=== PATIENT | male | born 1945 | race Caucasian/White ===

== ENCOUNTER → 2016-07-23 | Day surgery (SDC) | payer MEDICARE ==
[~2016-07-23] MED LIST: BUPIVACAINE HCL PF 0.5% 30 ML VIAL ONE; CLINDAMYCIN PHOS 600 MG/4 ML VIAL ONE; KETOROLAC TROMETHAMINE 30 MG/ML (IVP) VIAL IV PUSH ONE; LACTATED RINGER'S 1000 ML INJ 1,000 ML ONE; MIDAZOLAM HCL 2 MG/2 ML VIAL ONE; ONDANSETRON HCL 4 MG/2 ML VIAL IV PUSH ONE; PROPOFOL 200 MG/20 ML AMP IV ONE
--- NOTE | 2016-07-24 09:48 | MP ---
cc: EDNA BURKS DATE OF SURGERY 07/23/[address] Edna Burks UNIFIED COMMUNICATIONS ARCHITECT None. PREOPERATIVE DIAGNOSES 1. Left foot hallux rigidus. 2. Extensor contracture. POSTOPERATIVE DIAGNOSES 1. Left foot hallux rigidus. 2. Extensor contracture. PROCEDURE PERFORMED 1. Left foot first MPJ implant. 2. Left extensor hallucis longus lengthening. PATHOLOGY SENT None. ANESTHESIA General. HEMOSTASIS Ankle tourniquet at 250 mmHg. ESTIMATED BLOOD LOSS Less than 5 mL. INJECTABLES 10 cc of 0.5% Marcaine plain. MATERIALS USED A Silastic total first MPJ implant from [employer], 3-0 Monocryl, 3-0 Prolene. COMPLICATIONS None. INDICATIONS Mr. Orozco is a 71-year-old male patient with severe hallux rigidus of the left first MPJ. 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 We spoke about an MPJ fusion. However the concern is that the IPJ will need to be fused in the future. He has no pain now but clearly has arthritis. Fusing both joints can definitely cause a stiffening and unnatural gait so the decision was made to do a joint implant in the even he needs the IPJ fused. He is a low demand patient in his seventies and should manage quite well with an MPJ implant. The consent was signed. The procedure was explained. No guarantees were given. PROCEDURE Under mild anesthesia, the patient was brought into the operating room, placed in the operating table in supine position. The foot was then scrubbed, prepped and draped in the usual aseptic manner. An Esmarch bandage was used to exsanguinate the left foot and the tourniquet was inflated to 250 mmHg. Attention was directed to the dorsal aspect of the first metatarsophalangeal joint where a linear longitudinal incision was created through skin and deepened to the level of the joint with care being taken to identify and retract any vital neurovascular structures. The large dorsal and medial bone spurs were debrided using a rongeur and then two angled cuts were created, one on the metatarsal and one on the phalanx. The metatarsal was dorsal-proximal to plantar-distal and the phalanx was dorsal-distal to plantar-proximal. The pineapple bur was then used to break the surface of the metatarsal as well as the phalanx so that the awls could be inserted appropriately and make space for the implant. Once the stems were cleared, a size 40 sizer was implanted. The joint went through range of motion easily and the implant was well seated without being too tight or too loose. The sizer was removed. The area was flushed with copious amounts of sterile saline and a size 40 implant was placed. A Z-lengthening of the extensor hallucis longus was then performed as well as of the extensor hallucis brevis. They were both sutured back with 3-0 Monocryl and the deep and subcutaneous tissue was closed with 3-0 Monocryl and the skin was closed with 3-0 Prolene. Pneumatic ankle tourniquet was released, noted prompt hyperemic response to all digits of the left foot. 10 cc of 0.5% Marcaine plain was injected around the incision site. The foot was then dressed with sterile Adaptic, Jenny and then Candelario wrap. The patient tolerated the procedure and the anesthesia well and went to the recover in the PACU for a period time before being discharged home with written and oral postoperative instructions. Edna BEVERLY/SSB /12:30 PM /9:35 AM
== END | disposition home or self-care (01) ==
LOC: ESDC 07:40
PROVIDERS: ATTEND Podiatrist Foot & Ankle Surgery
DX: M20.22 Hallux rigidus, left foot (principal); M20.5X2 Other deformities of toe(s) (acquired), left foot
CPT/HCPCS: 01470; 01480; 28234; 28291; 73630; 76000; C1713; J1885; J2250; J2405; J3010; J7120